=== PATIENT | female | born 1990 | race African-American/Black ===

== ENCOUNTER 2020-10-26 11:40 | Observation (INO) ==
[2020-10-26] MEDS ORDERED: ALUM/MAG/SIMETH/LIDO VISC 1:1 30 ML BOTTLE PO STA (13:21)
[2020-10-26 14:35] LABS: Basophils % 0.5 % (0.0-0.8); Eosinophils # 0.2 10*3/uL (0.0-0.87); Eosinophils % 2.6 % (0.00-10.9); Hemoglobin 15.7 GM/DL (12.0-16.0); Immature Granulocytes % 0.3 %; Immature Granulocytes Absolute 0.02 #; Lymphocytes # 2.7 10*3/uL (1.4-4.0); Lymphocytes % 37.3 % (21.3-54.2); Mean Corpuscular Volume 86.7 FL (87-102); Mean Platelet Volume 12.2 FL (9.6-12.0); Monocytes % 5.4 % (1.7-12.7); Neutrophils % 53.9 % (38.7-73.9); Platelet Count 233 T/CUMM (130-400); Red Blood Count 5.65 MC/CUMM (3.8-5.5); Red Cell Distribution Width 13.1 % (9.3-17.3); White Blood Count 7.3 T/CUMM (4-12)
[2020-10-26 14:51] LABS: Bilirubin,Urine Negative (Negative); Blood, Urine Small mg/dL (Negative); Glucose,Urine (UA) Negative (Negative); Ketones,Urine Negative (Negative); Mucus,Urine Many /LPF (Occasional); Nitrite,Urine Negative (Negative); Protein,Urine Negative; RBC,Urine 2 /HPF (0-4); Squamous Epithelial Cell,Urine Occasional /HPF (0-10); Urine Appearance CLEAR (Clear); Urine Color Yellow (Yellow); Urine Specific Gravity 1.025 (1.001-1.035); Urine Urobilinogen < 2.0 EU/DL (0.2-1.0)
[2020-10-26 14:54] LABS: Albumin 4.5 G/DL (3.4-5.0); Bilirubin,Total 0.8 MG/DL (0.20-1.00); Calcium 9.3 MG/DL (8.5-10.1); Osmolality,Calculated 273.5 MOS/KG (273-304); Potassium 3.9 MMOL/L (3.5-5.1); Total Protein 8.2 G/DL (6.4-8.2)
[2020-10-26] MEDS ORDERED: INDOCYANINE GREEN 25 MG VIAL IV ONE (15:21)
[2020-10-26] MEDS ORDERED: BISACODYL 5 MG TABLET PO PRN (15:22)
[2020-10-26] MEDS ORDERED: ALBUTEROL/IPRATROPIUM 3 ML NEB RESP TX PRN (15:22)
[2020-10-26] MEDS ORDERED: HYDROmorphone 2 MG/1 ML VIAL IV PRN ×2 (15:22)
[2020-10-26] MEDS ORDERED: ACETAMINOPHEN 325 MG TABLET PO PRN (15:22)
[2020-10-26] MEDS ORDERED: ONDANSETRON 4 MG/2 ML VIAL IV PRN ×2 (15:22→17:45)
[2020-10-26] MEDS ORDERED: KETOROLAC 30 MG/1 ML VIAL IV PRN (15:22)
[2020-10-26] MEDS ORDERED: fentaNYL 100 MCG/2 ML VIAL ONE ×2 (15:59→16:18)
[2020-10-26] MEDS ORDERED: MIDAZOLAM 2 MG/2 ML VIAL ONE (16:04)
[2020-10-26] MEDS ORDERED: SUCCINYLCHOLINE 200 MG/10 ML VIAL ONE (16:05)
[2020-10-26] MEDS ORDERED: LIDOCAINE 2% 5 ML VIAL ONE (16:05)
[2020-10-26] MEDS ORDERED: LACTATED RINGERS 1,000 ML IV ONE (16:05)
[2020-10-26] MEDS ORDERED: propofoL 200 MG/20 ML VIAL IV ONE ×2 (16:05→16:17)
[2020-10-26] MEDS ORDERED: SEVOFLURANE 1 UNIT/15 MINUTE INH ONE (16:05)
[2020-10-26] MEDS ORDERED: ROCURONIUM 50 MG/5 ML VIAL IV ONE (16:05)
[2020-10-26] MEDS ORDERED: BUPIVACAINE MPF 0.25% 30 ML VIAL ONE (16:17)
[2020-10-26] MEDS ORDERED: LIDOCAINE 1%/EPI INJ 20 ML VIAL ONE (16:18)
[2020-10-26] MEDS ORDERED: ceFAZolin 1,000 MG VIAL ONE ×2 (16:33→16:34)
[2020-10-26] MEDS ORDERED: DEXAMETHASONE 4 MG/1 ML VIAL ONE (16:38)
[2020-10-26] MEDS ORDERED: ONDANSETRON 4 MG/2 ML VIAL ONE (16:38)
[2020-10-26] MEDS ORDERED: DEXMEDETOMIDINE 200 MCG/2 ML VIAL ONE (16:40)
[2020-10-26] MEDS ORDERED: PHENYLEPHRINE 1 MG/10 ML SYRINGE IV ONE (16:49)
[2020-10-26] MEDS ORDERED: SUGAMMADEX 200 MG/2 ML VIAL IV ONE (16:56)
[2020-10-26] MEDS ORDERED: TISSUE ADHESIVE 1 EACH APPLICATOR TOP ONE (16:58)
[2020-10-26] MEDS: LACTATED RINGERS 1,000 ML IV SCH ×2 (17:35→23:05)
[2020-10-26] MEDS ORDERED: MEPERIDINE 25 MG/1 ML VIAL ONE (17:43)
[2020-10-26] MEDS: MEPERIDINE 25 MG/1 ML VIAL IV PRN ×2 (17:45→18:04)
[2020-10-26] MEDS: HYDROmorphone 2 MG/1 ML VIAL IV PRN ×3 (18:25→18:50)
[2020-10-27 08:56] VITALS: BP 112/69
[2020-10-27] MEDS ORDERED: PANTOPRAZOLE 40 MG TABLET PO SCH (09:00)
[2020-10-27] MEDS: LACTATED RINGERS 1,000 ML IV SCH (09:44)
== END 2020-10-27 10:19 | disposition home or self-care (01) ==
LOC: N.ED 11:40 → N.TELES 15:20 → N.EDINP 15:22 → INTOOBSV 15:22 → N.TELES 19:36
PROVIDERS: ADMIT Surgery; ATTEND Surgery